=== PATIENT | female | born 1985 | race Caucasian/White ===

== ENCOUNTER 2017-09-06 13:13 | Observation (INO) | payer BC ==
[2017-09-06] MEDS ORDERED: Lactated Ringers 1,000 ML IV ONE (13:53)
[2017-09-06] MEDS ORDERED: Betamethasone Acetate/Betamethasone Sod Phosphate 30 MG/5 ML MDV IM ONE (13:55)
--- NOTE | 2017-09-06 14:27 | US ---
Clinical history: 32-year-old gravid female with gestational diabetes, "low amniotic fluid volume" (A FI 6.25 cm) and section. Interpretation: Enlarged uterus with a single live ( heart rate 145 bpm) intrauterine gestation in vertex presentation. Note: Relative decrease in amniotic fluid volume since recent exam 30 August 2017 i.e. RADHA now 4.47 cm. but largest pocket still greater than 2 cm. Maximum biophysical profile score 8 of 8 reflecting summation score 2 each for the sonographic parame ters motion, breathing movements, tone and amniotic fluid volume (clinical nonstres s test results are "pending").
[2017-09-06] MEDS ORDERED: Acetaminophen 325 MG Tab PO PRN (15:01)
[2017-09-06] MEDS ORDERED: Tranexamic Acid 1,000 MG in Sodium Chloride 0.9% 100 ML IV PRN (15:01)
[2017-09-06] MEDS: Lactated Ringers 1,000 ML IV SCH ×2 (15:35→22:55)
[2017-09-07] MEDS: Lactated Ringers 1,000 ML IV SCH (07:01)
--- NOTE | 2017-09-07 07:29 | HP ---
PATIENT IDENTIFICATION: Nancie Otero is a 32-year-old, G2, P1-0-0-1, intrauterine at 34 and 3/7 weeks, confirmed with an 8 and 5/7-week ultrasound, who is being admitted for observation with oligohydramnios with an RADHA of 4.47 cm. HISTORY OF PRESENT ILLNESS: The patient was being evaluated for gestational diabetes mellitus. It currently appears to be diet controlled with BPP scored a 10/10, however, had an RADHA of 4.47 cm. Her RADHA has been slowly decreasing and is now crossed threshold less than 5. This case was subsequently discussed with Dr. Petersen, [employer], in [place]. It was recommended observation and admission with IV fluid resuscitation and IV fluids thereafter, as well as hydration with repeat ultrasound in the morning as well as steroids. Currently, she has received her first dose of betamethasone. We will repeat one in 24 hours from first dose. To put this in context, on her previous delivery, the baby had a fever, was sent to the NICU with suspected pneumonia and meningitis requiring antibiotics with GBS positive status, chorioamnionitis with a primary low transverse done at 41 and 3/7 weeks with a weight of 5075 g with a male. Records were called for, reviewed as below, and supplemented by the patient's history. ANTEPARTUM LABORATORY DATA: Blood type O positive. Negative antibody. Rubella immune. Syphilis antibodies nonreactive. Negative hepatitis B surface antigen. Negative hep C, HIV, GC, and Chlamydia. Wet prep within normal limits. One- hour GTT was 160 with gestational diabetes mellitus findings thereafter. Hemoglobin on 07/23/2017 was 11. GBS is unknown. ALLERGIES: Penicillin was listed, was told not to take it because she had a reaction when she was younger. PAST MEDICAL/PAST SURGICAL HISTORY: Remarkable for gestational diabetes mellitus with this ; as above; having TMJ improved with dental guard in 2014; at the age of 11, history of chickenpox as a child; having history of environmental allergies and insomnia that is stress-related; macrosomic as above; and gestational diabetes mellitus. Surgeries: She has had a cholecystectomy in 2017 and septoplasty in 2009. She has had wisdom tooth out. FAMILY HISTORY: Father has allergies and asthma. Paternal grandmother has colon cancer and diabetes. Father with a bicuspid aortic valve. Hypertension in mother. Maternal grandfather is a smoker and metastasis to the bone. Twins somewhere in the family. Ovarian cancer in maternal grandmother. schizophrenia runs in half sibling. Thinks they had schizophrenia. Negative family history of defects, cystic fibrosis, seizures, anesthesia problems, bleeding problems, or clotting disorders. 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 Nancie stays at home with Dylan. REVIEW OF SYSTEMS: The patient denies any spotting, bleeding, leaking, or contractions. She denies any headaches, visual changes, upper abdominal pain, fever, chills, or sweats. Otherwise, review of systems was fully reviewed and felt to be noncontributory. OBJECTIVE: Vital Signs: Blood pressure 136/80, heart rate 90, and temperature 98.7. Appearance: Female. Appears her stated age, acting appropriate, nontoxic appearance. HEENT: Head is atraumatic. EOMs intact. PERRLA. No scleral icterus. No otorhinorrhea. Mucous membranes are moist. Neck: No obvious tenderness. Lungs: Clear to auscultation bilaterally. No increased work of breathing. Heart: S1 and S2. Regular rate and rhythm. Abdomen: Gravid. Demetri indeterminate. Nontender. Nondistended. Bowel sounds positive. No other organomegaly, pulsatile masses, or obvious hernias. No rebound, rigidity, or guarding. Genitourinary: The patient defers. No vaginal leaking is elicited. Extremities: Trace pedal edema to the proximal tibia. Deep tendon reflexes 2 to 3/4 bilaterally and symmetric in lower extremities. Psychiatric: Mood and affect are congruent. Judgment and insight intact. Skin: Without cyanosis, clubbing, or jaundice. LABORATORY DATA: Today, RADHA was 4.47 with a biophysical profile scoring a 10/10. NST was done. Please see dictation in regards to this. heart tone baseline is around the 150 to 155 range. Tocometer reveals no evidence of contractions. ASSESSMENT: 1. Intrauterine at 34 and 3/7 weeks, confirmed with an 8 and 5/7- week ultrasound. 2. Oligohydramnios with an RADHA of 4.47 cm. The case was discussed with Dr. Petersen. We will hydrate and follow up tomorrow with an ultrasound with growth, RADHA, and another BPP. 3. Gestational diabetes mellitus, diet controlled. We will re-evaluate her sugars while she is here, fasting and 2 hours postprandial. 4. G2, P1-0-0-1. 5. History of , requests for a repeat . PLAN: The patient will be admitted to observation and continuous monitoring with IV fluid resuscitation and increasing p.o. fluids. We will follow clinically and closely. The patient understands and agrees with the above treatment plan. Questions were answered. [facility] /[id number]
--- NOTE | 2017-09-07 07:41 | OBOUT ---
DATE: 09/06/2017 DATE AND TIME OF NST: Date: 09/06/2017 Time: 1350 hours to 1410 hours. REASON FOR NST: 1. Intrauterine 34 and 3/7 weeks, confirmed with 18 and 5/7 weeks ultrasound. 2. Oligohydramnios with RADHA of 4.47 cm today. 3. Gestational diabetes mellitus, diet controlled. 4. History of , requests repeat low transverse . 5. G2, P1-0-0-1. NST INTERPRETATION: During this time period, heart tone baseline is approximately 145 and there are at least two 15 x 15 beat per minute accelerations, making this strip reactive. It is also noted to be reassuring. Tocometer reveals no evidence of contractions. ASSESSMENT: 1. Nonstress test, reactive and reassuring. 2. Tocometer without contractions. PLAN: Please see admit history and physical for further details. [facility] /[id number]
[2017-09-07] MEDS ORDERED: Prenatal Multivitamin with Calcium/Folic Acid/Iron Tab PO SCH (09:00)
--- NOTE | 2017-09-07 10:08 | OBOUT ---
DATE: 09/07/2017 DATE AND TIME OF NST: 09/07/2017 at 5:46 a.m. REASON FOR NST: 1. Intrauterine at 34-3/7 weeks, confirmed with 8-5/7 weeks' ultrasound. 2. Oligohydramnios with RADHA of 4.47 cm yesterday. 3. Gestational diabetes mellitus, diet controlled. 4. History of , requests repeat low transverse . 5. Status post betamethasone x1 with a due for 1 later today. 6. 2, para 1-0-0-1. NST INTERPRETATION: During this time period, heart tone baseline is approximately 125 and there are at least two 15 x 15 beat per minute accelerations making the strip reactive. It is also noted to be reassuring. Tocometer reveals no evidence of contractions. ASSESSMENT: 1. Nonstress test, reactive and reassuring. 2. Tocometer without contractions. PLAN: The patient has her biophysical profile with RADHA as well as estimated weight/growth ultrasound around 10:30 this morning. The patient denies any contractions, spotting, bleeding, or leaking. She has been afebrile. Vital signs have been stable. Her sugar has been minimally elevated with a sugar of 144 postprandial 2 hours last night, suspect related to the steroids. We will await the above investigations and most likely we will run the case by Dr. Petersen who is in town this weekend looking for recommendations for further evaluation and management. [facility] /[id number]
--- NOTE | 2017-09-07 11:54 | US ---
Clinical history: 32-year-old gravid female with gestational diabetes and "oligohydramnios" (RADHA 6.25 cm 30 August and 4.47 cm on 06 September 2017 exams). Interpretation: Enlarged uterus with a single live intrauterine gestation, cephalic (vertex) presenta tion, and a heart rate of 165 bpm. measurements: Biparietal diameter 9.15 cm approximates a 37 week 1 day gestation; week 1 day ge station; abdominal circumference 33.05 cm equals a 37 week gestation; and femur length 6.99 cm equals a 35 week 6 day gestation for an average ultrasound age 36 weeks and 6 days. Amniotic fluid index today measures 7.69 cm which is low end of normal. Biophysical profile score 8 of possible 8 reflecting summation score 2 each for the sonographic dieter eters breathing movement, motion, tone and amniotic fluid volume. (Clinical nonstre ss test results are not immediately available)
--- NOTE | 2017-09-07 13:05 | DISCH ---
ADMITTING DIAGNOSES: 1. Intrauterine at 34 and 3/7 weeks, confirmed with 8 and 5/7-week ultrasound. 2. Oligohydramnios with RADHA of 4.47 cm. 3. Gestational diabetes mellitus, diet controlled. 4. History of , requests repeat low transverse . 5. G2, P1-0-0-1. DISCHARGE DIAGNOSES: 1. Intrauterine at 34 and 4/7 weeks, confirmed with 8 and 5/7-week ultrasound. 2. Oligohydramnios, resolved with RADHA of 7.6 on the date of discharge with a biophysical profile scoring 10/10. 3. Gestational diabetes mellitus, diet controlled. 4. History of , requests repeat low transverse . 5. G2, P1-0-0-1. HISTORY OF PRESENT ILLNESS: Please see H and P. SUMMARY OF HOSPITAL COURSE: The patient was admitted on the above date with the above diagnoses after having a workup with BPP with RADHA revealing a 4.47 cm. This was discussed with Dr. Petersen. Recommendation to proceed with IV fluid resuscitation, pushing p.o. fluids, and repeating ultrasound in the morning. Ultrasound on the date of discharge was as above with RADHA above 5 and with a BPP scoring of 10/10. The patient's vital signs have been stable. DISCHARGE EVALUATION: No contractions, spotting, bleeding, or leaking. heart tones when detected have been reassuring. Tocometer has not revealed any obvious contractions. CONDITION ON DISCHARGE COMPARED TO CONDITION ON ADMISSION: Guarded. DISCHARGE INSTRUCTIONS: Diet; recommend increasing p.o. fluids. Activity as tolerated. FOLLOWUP: Follow up on 09/10/2017, for a BPP with RADHA; followed by another one on 09/13/2017, BPP with RADHA and clinic visit. I did discuss with the patient in the interim the reason to return to the emergency room as well as discussed the importance of followup and ramifications of not doing so, and we will start twice weekly BPPs with AFIs; and this case was discussed with Dr. Petersen. We will continue to follow clinically and closely. [facility] /[id number]
[2017-09-07] MEDS ORDERED: Betamethasone Acetate/Betamethasone Sod Phosphate 30 MG/5 ML MDV IM SCH (15:00)
[2017-09-07 15:14] VITALS: BP 118/67
== END 2017-09-07 13:55 | disposition home or self-care (01) ==
LOC: DL.US 13:13 → DL.OB 13:13 → UNDOADMOB 15:06
PROVIDERS: ADMIT Family Medicine; ATTEND Family Medicine
DX: O41.03X0 Oligohydramnios, third trimester, not applicable or unspecified (principal); O24.410 Gestational diabetes mellitus in pregnancy, diet controlled; Z3A.34 34 weeks gestation of pregnancy; Z88.0 Allergy status to penicillin
CPT/HCPCS: 59025; 76815; 76819; 82962; 96360; 96361; 96372; G0378; J0702; J7120

== ENCOUNTER 2017-10-08 08:00 | Inpatient (IN) | payer BC ==
[2017-10-09] MEDS ORDERED: Methylergonovine 0.2 MG/1 ML Amp IM PRN (06:00)
[2017-10-09] MEDS ORDERED: Ketorolac 30 MG/ML SDV IVPUSH SCH (06:00)
[2017-10-09] MEDS ORDERED: ePHEDrine 50 MG/ML SDV IVPUSH PRN (06:00)
[2017-10-09] MEDS ORDERED: Naloxone 2 MG/2 ML Syringe IVPUSH PRN (06:00)
[2017-10-09] MEDS ORDERED: Acetaminophen 325 MG Tab PO PRN (06:00)
[2017-10-09] MEDS ORDERED: Oxytocin/Normal Saline 30 UNIT/500 ML BAG IV SCH (06:00)
[2017-10-09] MEDS ORDERED: Tranexamic Acid 1,000 MG in Sodium Chloride 0.9% 100 ML IV PRN (06:00)
[2017-10-09] MEDS ORDERED: Ondansetron 4 MG/2 ML SDV IV PRN (06:00)
[2017-10-09] MEDS ORDERED: Carboprost Tromethamine 250 MCG/1 ML Amp IM ONE (06:00)
[2017-10-09] MEDS ORDERED: Citric Acid/Sodium Citrate Solution 30 ML Cup PO ONE (06:00)
[2017-10-09] MEDS ORDERED: Clindamycin Phosphate 900 MG in Sodium Chloride 0.9% 100 ML IV ONE (06:00)
[2017-10-09] MEDS ORDERED: Misoprostol 400 MCG (4 X 100 MCG TAB) RECTAL PRN (06:00)
[2017-10-09] MEDS ORDERED: Acetaminophen/oxyCODONE 325-5 MG Tab PO PRN (06:00)
[2017-10-09] MEDS ORDERED: diphenhydrAMINE 50 MG/ML SDV IVPUSH PRN (06:00)
[2017-10-09] MEDS ORDERED: Oxytocin 10 Units/1 ML SDV ONE (06:02)
[2017-10-09] MEDS ORDERED: Oxytocin/Normal Saline 60 UNIT/1,000 ML BAG ONE (06:03)
[2017-10-09] MEDS: Lactated Ringers 1,000 ML IV SCH ×4 (06:20→18:47)
[2017-10-09] MEDS: Ferrous Sulfate 325 MG Tab PO SCH ×2 (06:24→18:56)
[2017-10-09] MEDS: Prenatal Multivitamin with Calcium/Folic Acid/Iron Tab PO SCH ×2 (06:24→15:44)
[2017-10-09] MEDS ORDERED: Dextrose 5% in Water 1,000 ML IV SCH (07:30)
--- NOTE | 2017-10-09 09:38 | HP ---
PATIENT IDENTIFICATION: Nancie Otero is a 32-year-old G2, P1-0-0-1, intrauterine at 39 and 1/7 weeks, confirmed with 8 and 5/7 week ultrasound, previous , requests repeat low transverse with complicated by gestational diabetes mellitus that is diet controlled, history of macrosomia with previous infant and GBS bacteriuria in this , who presents for repeat . HISTORY OF PRESENT ILLNESS: The patient has gestational diabetes mellitus that has been diet controlled, been working with dietitians as well as clinicians at the clinic here in [place]. She has been followed with testing twice weekly. She did have some borderline oligohydramnios early on, but with rehydration, was followed closely, and been less of a concern thereafter. Otherwise, her was remarkable for having GBS bacteriuria. Today, she denies any contractions, spotting, bleeding, or leaking. Records were called for, reviewed as below, and supplemented by the patient's history. OBSTETRICAL HISTORY: On 11/20/2015, at 41 and 3/7 weeks, delivered male, primary low transverse with 2-layer uterine closure with a weight of 5075 g with prolonged rupture of membranes, GBS positive status, baby with fever and sent to NICU with suspected pneumonia and meningitis requiring antibiotics. ANTEPARTUM LABORATORY DATA: ABO blood type O positive. Negative antibody. Rubella immune. Syphilis antibodies negative. Negative hepatitis B surface antigen. Hep C, HIV, GC and Chlamydia, wet prep within normal limits. One-hour GTT was 160. Three-hour test was positive for gestational diabetes mellitus. Last hemoglobin on 07/23/2017, was 11 and platelets 247, and she had GBS bacteriuria during the . ALLERGIES: Penicillin. MEDICATIONS: 1. vitamins. 2. Vitamin D. 3. Iron sulfate 325. PAST MEDICAL/PAST SURGICAL HISTORY: Remarkable for: 1. as above. 2. Laparoscopic cholecystectomy in 03/2016. 3. Septoplasty in 2009. 4. Vale teeth extraction. FAMILY HISTORY: Father has allergies, asthma, and a bicuspid aortic valve. Paternal grandmother in her 50s with colon cancer and had diabetes as well. Mother has hypertension. Maternal grandfather had lung cancer, he smoked, and had metastatic disease to the bones. Had some twins in the family. Ovarian cancer in the paternal grandmother. Half sister had schizophrenia suspected. Negative family history of defects, cystic fibrosis, seizures, anesthesia problems, bleeding problems, or clotting disorders. SOCIAL HISTORY: Nancie and her , Miguelito, live with their son, Dylan, in [place]. 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 Nancie stays at home with Dylan. REVIEW OF SYSTEMS: Otherwise reviewed and felt to be noncontributory. OBJECTIVE: Vital Signs: Blood pressure 119/72 with a heart rate of 82, temperature 98.9, heart rate is 89 now. Appearance: Female. Appears her stated age, acting appropriate for age, nontoxic appearance. HEENT: Head atraumatic. EOMs intact. PERRLA. No scleral icterus. No obvious otorhinorrhea. Mucous membranes are moist. Neck: No obvious tenderness. Lungs: Clear to auscultation bilaterally. No increased work of breathing. Heart: S1 and S2. Regular rate and rhythm. Abdomen: Gravid. Demetri indeterminate. Nontender. Nondistended. Bowel sounds positive. No other organomegaly, pulsatile masses, or obvious hernias. No rebound, rigidity, or guarding with monitors applied. Pfannenstiel scar noted. Genitourinary: Deferred. Extremities: SOTO hose are on. Trace to 1+ pitting edema to proximal tibia. Deep tendon reflexes 2/4 bilaterally and symmetric in the lower extremities. Psychiatric: Mood and affect are congruent. Judgment and insight are intact. Skin: No cyanosis, clubbing, or jaundice. Pelvic: heart tones upon admission between 130 and 140 baseline with accelerations seen into the 150s. Tocometer reveals only occasional contraction. ASSESSMENT: 1. Intrauterine at 39 and 1/7 weeks, confirmed with 8 and 5/7 week ultrasound. 2. Previous section, requests repeat low transverse section. 3. Gestational diabetes mellitus, diet controlled. Sugar was done this morning, and it was 64 fasting. 4. History of macrosomia with previous being 5075 g. 5. History of affected by suspected sepsis. 6. Group B Streptococcus bacteriuria. 7. 2, para 1-0-0-1. 8. Allergies to penicillin. PLAN: The patient will be admitted. I did discuss with her risks, benefits, alternatives, and complications of including, but not limited to, infection, bleeding, damage to internal organs such as bowel, bladder, tubes, uterus, ovaries, sometimes fetus rarely needing a blood transfusion or further surgery and rarer maternal or . She understands, agrees, and wishes to proceed. Verbal and written consent were obtained. Questions were answered. was present during this discussion as well. Due to the patient's allergies, we will give clindamycin 900 mg IV as well as gentamicin, approximately 5 mg/kg dosing per pharmacy for preop antibiotics. We will continue to follow clinically and closely. Proceed to the OR as soon as crew is ready and available. [facility] /[id number]
--- NOTE | 2017-10-09 10:02 | OBOUT ---
DATE: 10/09/2017 DATE AND TIME OF NST: Date: 10/09/2017 Time: 5:59 to 6:19. REASON FOR NST: 1. Intrauterine at 39 and 1/7 weeks, confirmed by 8 and 5/7-week ultrasound. 2. Previous , requests a repeat low-transverse . 3. Gestational diabetes mellitus, diet controlled. 4. History of macrosomia. 5. History of previous affected by sepsis in the period. 6. Group B streptococcus bacteriuria. 7. G2, P1-0-0-1. 8. Allergies to penicillin. NST INTERPRETATION: During this time period, heart tone baseline is approximately 135 and there are at least two 15 x 15 beat per minute accelerations, making this strip reactive. It is also noted to be reassuring. Tocometer reveals no evidence of contraction. ASSESSMENT: 1. Nonstress test, reactive and reassuring. 2. Tocometer without contractions. PLAN: Please see H and P for further details. [facility] /[id number]
--- NOTE | 2017-10-09 10:53 | OR ---
DATE: 10/09/2017 PREOPERATIVE DIAGNOSES: 1. Intrauterine at 39 and 1/7 weeks, confirmed with an 8 and 5/7- week ultrasound. 2. Previous , requests repeat low-transverse . 3. Gestational diabetes mellitus, diet controlled. 4. History of macrosomia with previous weighing 5075 g. 5. History of previous / affected by suspected sepsis/meningitis. 6. Group B streptococcus bacteriuria during this . 7. Penicillin allergy. 8. G2, P1-0-0-1. 9. Hypoglycemia with sugar of 64 prior to going to the OR. D5 half normal was started per [employer]. Please see his notes. POSTOPERATIVE DIAGNOSES: 1. Intrauterine at 39 and 1/7 weeks, confirmed with an 8 and 5/7- week ultrasound - delivered. 2. Previous , requests repeat low-transverse . 3. Gestational diabetes mellitus, diet controlled. 4. History of macrosomia with previous infant weighing 5075 g. 5. History of previous infant/ affected by suspected sepsis/meningitis. 6. Group B streptococcus bacteriuria during this . 7. Penicillin allergy. 8. G2, P1-0-0-1. 9. Hypoglycemia with sugar of 64 prior to going to the OR. D5 half normal was started per [employer]. Please see his notes. 10.Nuchal cord x1 reduced bluntly with delivery. PROCEDURES PERFORMED: Nonstress test followed by repeat low transverse section. [facility] [facility] SUPERVISOR: Dahiana Rucker MD. ANESTHESIA: Spinal. ESTIMATED BLOOD LOSS: 600 mL. INTRAVENOUS FLUIDS: LR 1000 mL, Pitocin 150 mL, and D5 half normal 100 mL. URINE OUTPUT: 350 mL clear yellow. START TIME: 0805 hours. UTERINE INCISION TIME: 0807 hours. DELIVERY TIME: 0808 hours. STOP TIME: 08 hours. FINDINGS: Female. scores of 7 and 9. Weight pending. Nuchal cord x1 reduced bluntly with delivery. DESCRIPTION OF PROCEDURE IN DETAIL: After proper consent was obtained, the patient was brought to the operating room, where spinal anesthetic was administered. Waller was placed in preop under sterile conditions. Abdomen was prepped and draped in the normal sterile fashion. The patient was placed in supine position with left lateral tilt. A skin incision was then made on lower abdomen in transverse Pfannenstiel-type fashion over previous scar. This was carried down the fascia and scored in midline. The subcutaneous tissue was raked laterally by Francis retractor. The fascial incision was extended in a transverse fashion using curved Castellon's. Darin clamps x2 were used to grasp the superior aspect of the fascia, and rectus muscles were dissected from the fascia using sharp and blunt technique. In a similar fashion, Darin clamps x2 were used to grasp the inferior portion of the incision and rectus pyramidalis muscles were dissected from the fascia using sharp and blunt technique. Rectus muscles were in the midline with blunt technique. Abdominal cavity was entered with blunt technique. Incision was extended superiorly and inferiorly with blunt technique. Raimundo O large retractor was then introduced and used. Vesicouterine peritoneum was identified and incised in transverse fashion with Metzenbaum scissors. Bladder flap was then made digitally. A curvilinear incision was made on the lower uterine segment at 0807 hours. Uterus was entered sharply. Clear fluid returned. The uterine incision was then extended in a transverse fashion using blunt technique. vertex was then delivered through the incision followed by rest of the with nuchal cord x1 reduced bluntly with delivery. Mouth and nares were suctioned on the patient's lap. Cord was doubly clamped and cut and infant was brought over to the team. Then, approximately 10 mL of cord blood was obtained for labs. Placenta then delivered with gentle cord traction and fundal massage. The uterine cavity was then cleared of all blood clots and debris with lap sponge. Trevino clamps were used to grasp the uterine incision, and this was closed in a running locked fashion and tied at lateral margins with 1-0 Vicryl. Left lateral portion of the incision revealed some bleeding. Two [id number] stitches were applied. Hemostasis reassured. First inspection of the uterine incision revealed hemostasis. Raimundo O retractor was then removed, and paracolic gutters were then cleared of all blood clots and debris with lap sponge. Anterior cul-de-sac was then irrigated copiously. All blood clots and debris were removed. The second and final inspection of the uterine incision and anterior cul-de-sac revealed hemostasis. Rectus muscles were then reapproximated in the midline with [id number] stitch using 1-0 Vicryl. Subfascial tissue was found to be hemostatic. Fascia was closed in a running fashion and tied at lateral margin with 0 looped PDS. Subcutaneous tissue was irrigated copiously. Hemostasis reassured. Skin was reapproximated with medium fredo. Sterile Aquacel dressing was applied. Firm uterus. Fundus was noted at -1 below umbilicus. No immediate complications were noted. Sponge, lap, and needle counts were correct. The patient received gentamicin and clindamycin due to her allergies preoperatively. Pitocin was given per protocol, and Toradol will be given at conclusion of the case for pain control. Mother and are currently stable at the time of dictation. Sugar will be taken in the PACU to make sure the patient's sugar is stable as well. [facility] /[id number]
[2017-10-09] MEDS: Ketorolac 30 MG/ML SDV IVPUSH SCH ×2 (15:42→21:28)
[2017-10-09] MEDS: Simethicone 80 MG Tab.Chew PO SCH ×3 (15:44→21:28)
[2017-10-10] MEDS: Lactated Ringers 1,000 ML IV SCH (03:00)
[2017-10-10] MEDS: Ketorolac 30 MG/ML SDV IVPUSH SCH (03:05)
[2017-10-10] MEDS: Prenatal Multivitamin with Calcium/Folic Acid/Iron Tab PO SCH (08:37)
[2017-10-10] MEDS: Docusate Sodium 100 MG Cap PO PRN ×2 (08:37→23:19)
[2017-10-10] MEDS: Simethicone 80 MG Tab.Chew PO SCH ×4 (08:37→21:54)
[2017-10-10] MEDS: Ferrous Sulfate 325 MG Tab PO SCH (08:50)
--- NOTE | 2017-10-10 10:30 | PN ---
DATE: 10/10/2017 Postoperative day #1. SUBJECTIVE: The patient is tolerating p.o.'s, can feel her legs and move her legs. She has been passing flatus. Waller is in place. OBJECTIVE: Vital Signs: Temperature 97.8, heart rate 63, blood pressure 114/70, and respiratory rate 18. Lungs: Clear to auscultation bilaterally. Heart: S1 and S2. Regular rate and rhythm. Abdomen: Firm uterus around the umbilicus. Aquacel dressing appears dry and intact. Extremities: SOTO hose are on. LABORATORY DATA: CBC will be ordered for today. ASSESSMENT AND PLAN: Postoperative day #1, status post repeat low transverse C- section. Appears to be doing well. I did discuss with her cares for today and following clinically and closely. The patient understands and agrees with the above treatment plan. [facility] /[id number]
[2017-10-10] MEDS: Ibuprofen 800 MG Tab PO PRN ×2 (16:04→23:19)
[2017-10-10] MEDS: Acetaminophen/oxyCODONE 325-5 MG Tab PO PRN (23:20)
[2017-10-11] MEDS: Acetaminophen/oxyCODONE 325-5 MG Tab PO PRN (04:50)
[2017-10-11 09:04] VITALS: BP 108/69
[2017-10-11] MEDS: Ibuprofen 800 MG Tab PO PRN (09:16)
[2017-10-11] MEDS: Docusate Sodium 100 MG Cap PO PRN (09:17)
[2017-10-11] MEDS: Simethicone 80 MG Tab.Chew PO SCH (09:17)
[2017-10-11] MEDS: Prenatal Multivitamin with Calcium/Folic Acid/Iron Tab PO SCH (09:18)
[2017-10-11] MEDS: Ferrous Sulfate 325 MG Tab PO SCH (09:18)
--- NOTE | 2017-10-11 10:58 | DISCH ---
ADMIT DIAGNOSES: 1. Intrauterine at 39 and 1/7 weeks, confirmed by 8 and 5/7 week ultrasound. 2. Previous section, requests repeat low-transverse section. 3. Gestational diabetes mellitus, diet controlled. 4. History of macrosomia with previous infant (5075 g). 5. Group B Streptococcus bacteriuria during this . 6. History of previous infant affected by suspected sepsis. 7. 2, para 1-0-0-1. 8. Allergies to penicillin. DISCHARGE DIAGNOSES: 1. Intrauterine at 39 and 1/7 weeks, confirmed by 8 and 5/7 week ultrasound, delivered. 2. Previous section, requests repeat low-transverse section. 3. Gestational diabetes mellitus, diet controlled. 4. History of macrosomia with previous (5075 g). 5. Group B Streptococcus bacteriuria during this . 6. History of previous infant affected by suspected sepsis. 7. 2, para 1-0-0-1. 8. Allergies to penicillin. 9. Nuchal cord x1 reduced bluntly with delivery. PROCEDURE PERFORMED: NST followed by repeat low transverse on 10/09/[address] Brown. PRESENT ILLNESS: Please see H and P. SUMMARY OF HOSPITAL COURSE: The patient was admitted on the above date with the above diagnoses and underwent elective repeat low transverse under spinal with an EBL of 600 mL, yielding a female, scores of 7 and 9, weighing 9 pounds 3 ounces (4165 g). Nuchal cord x1 was noted with delivery and reduced bluntly with delivery. Postoperative day #1, please see progress note. Postop day #2, date of discharge, the patient was tolerating p.o., ambulating, urinating, passing flatus, and requesting discharge. PHYSICAL EXAMINATION: Vital Signs: Last set of vitals was updated and listed in the chart. Temperature 98.1, heart rate 80, blood pressure 113/72, respiratory rate 16. Lungs: Clear to auscultation bilaterally. Heart: S1 and S2. Regular rate and rhythm. Pelvic: Firm uterus at approximately umbilicus. Aquacel dressing appears dry and intact. Extremities: Trace pedal edema. No calf pain. LABORATORY DATA: Pending is a discharge CBC. CONDITION ON DISCHARGE COMPARED TO CONDITION ON ADMISSION: Improved. DISCHARGE INSTRUCTIONS: 1. Diet as tolerated. 2. Activity: No lifting more than 20 pounds. No sit-ups, straining, and, pelvic rest for the next 6 weeks with immediate return to fertility discussed with the patient. 3. Reasons to return or go to the emergency room were discussed with the patient in detail including, but not limited to, temperature greater than 100.4, foul-smelling discharge, red hot tender breasts, or increased vaginal bleeding, or increasing pain, drainage, or redness around the incision. DISCHARGE MEDICATIONS: 1. Agza-vld-[id number] Tylenol or ibuprofen for pain. 2. Iron sulfate 325 b.i.d. x6 weeks. 3. vitamins while . 4. Percocet 5/325 mg 1 to 2 q.6 hours p.r.n., #30, no refills. Discussed the use of medication, unwanted effects, as well as precautions with driving. FOLLOWUP: I did discuss importance of followup and ramifications of not doing so. Followup on Sunday10/15/2017, for staple removal with to be followed up at that time as well. I did discuss with the patient in the interim reasons to return or go to the emergency room in regard to her as well. [facility] /[id number]
[2017-10-11] MEDS ORDERED: ePHEDrine 50 MG/ML SDV IV ONE (12:24)
[2017-10-11] MEDS ORDERED: Bupivacaine 0.75%/D5W 2 ML Amp ONE (12:24)
[2017-10-11] MEDS ORDERED: Lactated Ringers 1,000 ML IV ONE (12:24)
[2017-10-11] MEDS ORDERED: Dexamethasone 4 MG/ML SDV IV ONE (12:24)
[2017-10-11] MEDS ORDERED: Morphine PF 1 MG/ML Amp ONE (12:24)
[2017-10-11] MEDS ORDERED: Ketorolac 30 MG/ML SDV IVPUSH ONE (12:24)
[2017-10-11] MEDS ORDERED: Ondansetron 4 MG/2 ML SDV IV ONE (12:24)
== END 2017-10-11 12:25 | disposition home or self-care (01) | DRG 540 ==
LOC: DL.OB 10-09 05:50 → OBSVTOIN 10-09 08:08 → DL.MS 10-10 21:00
PROVIDERS: ADMIT Family Medicine; ATTEND Family Medicine
PROC: 10D00Z1 Extraction of Products of Conception, Low, Open Approach (ICD-10-PCS; principal; 2017-10-09)
PROC: 6A550ZT Pheresis of Cord Blood Stem Cells, Single (ICD-10-PCS; 2017-10-09)
DX: O34.211 Maternal care for low transverse scar from previous cesarean delivery (principal); Z3A.39 39 weeks gestation of pregnancy; O99.824 Streptococcus B carrier state complicating childbirth; Z37.0 Single live birth; O24.420 Gestational diabetes mellitus in childbirth, diet controlled; E16.1 Other hypoglycemia; O69.81X0 Labor and delivery complicated by cord around neck, without compression, not applicable or unspecified; Z88.0 Allergy status to penicillin
CPT/HCPCS: 36415; 59025; 82962; 85027; 86850; 86900; 86901; A9270-GY; J1100; J1580; J1885; J2274; J2405; J2590; J7050; J7120; S0077